=== PATIENT | male | born 1955 | race African-American/Black ===

== ENCOUNTER 2020-10-26 09:54 | Emergency (ER) | payer OTHER ==
[~2020-10-26] VITALS: Ht 185.4 cm; Wt 84.4 kg
[2020-10-26] MEDS ORDERED: AMOX-CLAV 875-1 EACH PO (13:20)
[2020-10-26] MEDS ORDERED: KETO10TA2 PO (13:20)
[2020-10-26] MEDS ORDERED: CLEOCIN HCL300 MG PO (13:20)
== END 2020-10-26 13:34 | disposition home or self-care (01) ==
LOC: ER 09:54
DX: J34.89 Other specified disorders of nose and nasal sinuses (principal); J39.2 Other diseases of pharynx